=== PATIENT | female | born 1940 | race Caucasian/White ===

== ENCOUNTER 2018-02-08 14:03 | Emergency (ER) | payer MEDICARE, BC ==
[2018-02-08] MEDS ORDERED: ASPI-1471 PO (14:22)
[2018-02-08] MEDS ORDERED: METF-411 PO (14:22)
[2018-02-08] MEDS ORDERED: LEV125 PO (14:22)
[2018-02-08] MEDS ORDERED: ROSU5TAB8 PO (14:22)
--- NOTE | 2018-02-08 14:23 | ER Report ---
History and Physical Time Seen By MD: 14:22 Hx. of Stated Complaint: vaginal bleeding 20 min ago in toilet and underwear HPI/ROS CHIEF COMPLAINT: Vaginal bleeding HISTORY OF PRESENT ILLNESS: 77-year-old female patient presents to emergency room with vaginal bleeding. Patient states she was in the process of traveling to her home in [place], [place]. She states that she stopped at the top of the solid to go to the bathroom. She states when she did she noticed a significant amount of red blood. Patient states that she does not believe there was from the rectum, as there is fair amount of bleeding towards the front of the pad. Patient states that she hasn't had any abdominal pain, nausea, vomiting or diarrhea. She is scheduled for a CT scan on Wednesday of this week for her oncologist. Patient states she has not taken any medication for this. She saw the bleeding was concerned and wanted to come in and be evaluated for that. REVIEW OF SYSTEMS: Respiratory: No cough, no dyspnea. Cardiovascular: No chest pain, no palpitations. Gastrointestinal: As noted above Musculoskeletal: No back pain. Home Meds Active Scripts Ranitidine Hcl (ZANTAC) 150 Mg Tablet, 150 MG PO BID, #60 TAB Prov:DAI CHINCHILLA [facility] 02/08/18 Sucralfate (CARAFATE) 1 Gm Tablet, 1 GM PO QID, #60 TAB Take before meals and at bedtime. Crush the tablet and mix with water before taking. Prov:DAI CHINCHILLA [facility] 02/08/18 Reported Medications Rosuvastatin Calcium (CRESTOR) 5 Mg Tablet, 5 MG PO QODAY 02/08/18 Levothyroxine Sodium (LEVOTHYROXINE SODIUM) 0.125 Mg Tab, 0.125 MG PO QDAY, TAB 02/08/18 Metformin Hcl (METFORMIN HCL) 500 Mg Tablet, 1 TAB PO BID, TAB 02/08/18 Aspirin (ASPIR 81) 81 Mg Tablet.dr, 81 MG PO QDAY, TAB 02/08/18 Past Medical/Surgical History Patient has a past medical history of A. fib, colon cancer, arthritis, type 2 diabetes. Patient has a surgical history of hysterectomy, colon resection. Patient has a family medical history of cancer. Reviewed Nurses Notes: Yes Constitutional Vital Sign - Last 24 Hours 02/08/18 02/08/18 02/08/18 02/08/18 14:08 14:15 14:30 14:45 Temp 97.5 Pulse 70 67 63 Resp 16 B/P (MAP) 176/87 146/64 (91) Pulse Ox 92 91 91 88 O2 Delivery Room Air 02/08/18 02/08/18 02/08/18 15:00 15:15 16:08 Pulse 64 63 59 65 67 Resp 20 16 B/P (MAP) 147/78 (101) 142/69 (93) 151/74 (99) 155/83 (107) Pulse Ox 89 91 91 O2 Delivery Room Air Intake and Output 02/08/18 02/08/18 02/09/18 15:00 23:00 07:00 Output Total 10 ml Balance -10 ml Physical Exam General Appearance: The patient is alert, has no immediate need for airway protection and no current signs of toxicity. Respiratory: Chest is non tender, lungs are clear to auscultation. Cardiac: regular rate and rhythm Gastrointestinal: Abdomen is soft and non tender, no masses, bowel sounds normal. Musculoskeletal: Neck: Neck is supple and non tender. Extremities have full range of motion and are non tender. Skin: No rashes or lesions. DIFFERENTIAL DIAGNOSIS: After history and physical exam differential diagnosis was considered for GI bleed, bleeding from urethra, vaginal bleeding. Medical Decision Making Data Points Result Diagram: 02/08/18 1415 02/08/18 1415 Laboratory Hematology Test 02/08/18 14:15 02/08/18 15:33 02/08/18 15:44 Red Blood Count 4.89 M/uL (4.17-5.56) Mean Corpuscular Volume 91.3 fL (80.0-96.0) Mean Corpuscular Hemoglobin 31.3 pg (26.0-33.0) Mean Corpuscular Hemoglobin Concent 34.3 g/dL (32.0-36.0) Red Cell Distribution Width 13.8 % (11.5-14.5) Mean Platelet Volume 8.9 fL (7.2-11.1) Neutrophils (%) (Auto) 59.5 % (39.4-72.5) Lymphocytes (%) (Auto) 31.9 % (17.6-49.6) Monocytes (%) (Auto) 6.1 % (4.1-12.4) Eosinophils (%) (Auto) 2.0 % (0.4-6.7) Basophils (%) (Auto) 0.5 % (0.3-1.4) Nucleated RBC Relative Count (auto) 0.0 /100WBC Neutrophils # (Auto) 3.5 K/uL (2.0-7.4) Lymphocytes # (Auto) 1.9 K/uL (1.3-3.6) Monocytes # (Auto) 0.4 K/uL (0.3-1.0) Eosinophils # (Auto) 0.1 K/uL (0.0-0.5) Basophils # (Auto) 0.0 K/uL (0.0-0.1) Nucleated RBC Absolute Count (auto) 0.00 K/uL Prothrombin Time 13.1 seconds (12.0-14.4) Prothromb Time International Ratio 0.99 Activated Partial Thromboplast Time 27 seconds (23-35) Sodium Level 143 mmol/L (137-145) Potassium Level 3.5 mmol/L (3.5-5.0) Chloride Level 104 mmol/L (98-107) Carbon Dioxide Level 27 mmol/L (22-31) Blood Urea Nitrogen 18 mg/dl (7-18) Creatinine 0.80 mg/dl (0.52-1.04) Glomerular Filtration Rate Calc > 60.0 Random Glucose 135 mg/dl (75-110) Calcium Level 9.6 mg/dl (8.4-10.2) Total Bilirubin 0.4 mg/dl (0.2-1.3) Aspartate Amino Transf (AST/SGOT) 29 U/L (0-35) Alanine Aminotransferase (ALT/SGPT) 29 U/L (0-56) Alkaline Phosphatase 45 U/L (0-126) Total Protein 7.2 g/dl (6.3-8.2) Albumin 4.4 g/dl (3.5-5.0) Stool Occult Blood (IFOB) Positive (NEGATIVE) Urine Color Yellow Urine Clarity Clear Urine pH 5.0 pH (4.8-9.5) Urine Specific [place] 1.023 Urine Protein Negative mg/dL (NEGATIVE) Urine Glucose (UA) Negative mg/dL (NEGATIVE) Urine Ketones Negative mg/dL (NEGATIVE) Urine Blood Negative (NEGATIVE) Urine Nitrite Negative (NEGATIVE) Urine Bilirubin Negative (NEGATIVE) Urine Urobilinogen Negative mg/dL (0.2-1.9) Urine Leukocyte Esterase Negative (NEGATIVE) Urine RBC <1 /HPF (0-2/HPF) Urine WBC 2 /HPF (0-5/HPF) Urine Squamous Epithelial Cells Few /LPF (NONE-FEW) Urine Bacteria Negative /HPF (NONE-FEW) Urine Mucus Few /HPF (NONE-FEW) Chemistry Test 02/08/18 14:15 02/08/18 15:33 02/08/18 15:44 White Blood Count 5.9 k/uL (4.5-11.0) Red Blood Count 4.89 M/uL (4.17-5.56) Hemoglobin 15.3 g/dL (12.0-16.0) Hematocrit 44.6 % (34.0-47.0) Mean Corpuscular Volume 91.3 fL (80.0-96.0) Mean Corpuscular Hemoglobin 31.3 pg (26.0-33.0) Mean Corpuscular Hemoglobin Concent 34.3 g/dL (32.0-36.0) Red Cell Distribution Width 13.8 % (11.5-14.5) Platelet Count 206 K/uL (150-450) Mean Platelet Volume 8.9 fL (7.2-11.1) Neutrophils (%) (Auto) 59.5 % (39.4-72.5) Lymphocytes (%) (Auto) 31.9 % (17.6-49.6) Monocytes (%) (Auto) 6.1 % (4.1-12.4) Eosinophils (%) (Auto) 2.0 % (0.4-6.7) Basophils (%) (Auto) 0.5 % (0.3-1.4) Nucleated RBC Relative Count (auto) 0.0 /100WBC Neutrophils # (Auto) 3.5 K/uL (2.0-7.4) Lymphocytes # (Auto) 1.9 K/uL (1.3-3.6) Monocytes # (Auto) 0.4 K/uL (0.3-1.0) Eosinophils # (Auto) 0.1 K/uL (0.0-0.5) Basophils # (Auto) 0.0 K/uL (0.0-0.1) Nucleated RBC Absolute Count (auto) 0.00 K/uL Prothrombin Time 13.1 seconds (12.0-14.4) Prothromb Time International Ratio 0.99 Activated Partial Thromboplast Time 27 seconds (23-35) Glomerular Filtration Rate Calc > 60.0 Calcium Level 9.6 mg/dl (8.4-10.2) Total Bilirubin 0.4 mg/dl (0.2-1.3) Aspartate Amino Transf (AST/SGOT) 29 U/L (0-35) Alanine Aminotransferase (ALT/SGPT) 29 U/L (0-56) Alkaline Phosphatase 45 U/L (0-126) Total Protein 7.2 g/dl (6.3-8.2) Albumin 4.4 g/dl (3.5-5.0) Stool Occult Blood (IFOB) Positive (NEGATIVE) Urine Color Yellow Urine Clarity Clear Urine pH 5.0 pH (4.8-9.5) Urine Specific [place] 1.023 Urine Protein Negative mg/dL (NEGATIVE) Urine Glucose (UA) Negative mg/dL (NEGATIVE) Urine Ketones Negative mg/dL (NEGATIVE) Urine Blood Negative (NEGATIVE) Urine Nitrite Negative (NEGATIVE) Urine Bilirubin Negative (NEGATIVE) Urine Urobilinogen Negative mg/dL (0.2-1.9) Urine Leukocyte Esterase Negative (NEGATIVE) Urine RBC <1 /HPF (0-2/HPF) Urine WBC 2 /HPF (0-5/HPF) Urine Squamous Epithelial Cells Few /LPF (NONE-FEW) Urine Bacteria Negative /HPF (NONE-FEW) Urine Mucus Few /HPF (NONE-FEW) Coagulation Test 02/08/18 14:15 Prothrombin Time 13.1 seconds Prothromb Time International Ratio 0.99 Activated Partial Thromboplast Time 27 seconds Urinalysis Test 02/08/18 15:44 Urine Color Yellow Urine Clarity Clear Urine pH 5.0 pH (4.8-9.5) Urine Specific [place] 1.023 Urine Protein Negative mg/dL (NEGATIVE) Urine Glucose (UA) Negative mg/dL (NEGATIVE) Urine Ketones Negative mg/dL (NEGATIVE) Urine Blood Negative (NEGATIVE) Urine Nitrite Negative (NEGATIVE) Urine Bilirubin Negative (NEGATIVE) Urine Urobilinogen Negative mg/dL (0.2-1.9) Urine Leukocyte Esterase Negative (NEGATIVE) Urine RBC <1 /HPF (0-2/HPF) Urine WBC 2 /HPF (0-5/HPF) Urine Squamous Epithelial Cells Few /LPF (NONE-FEW) Urine Bacteria Negative /HPF (NONE-FEW) Urine Mucus Few /HPF (NONE-FEW) ED Course/Re-evaluation ED Course Patient was admitted exam room, history and physical were obtained. Differential diagnoses were considered. On examination lungs are clear, heart is regular, abdomen soft nontender. Pelvic exam was done which was described below. A CBC, CMP, urinalysis were obtained. The lab results were completely unremarkable, urine was negative. There was some blood noted on the pelvic exam. However there is just clotting was found in the vaginal vault. I did not see any active bleeding. A stool sample was obtained and was sent down for an occult blood. That was positive. As result of that we will go ahead and treat her with Zantac, as patient did have a reaction to a PPI in the past which caused abdominal discomfort. As well as Carafate. We'll have her follow-up with her primary care provider. With the blood in the vaginal vault and blew that is likely the source of bleeding, however I will go ahead and treat her for GI bleed as well. I did go ahead and check a CA-125 for any tumor markers. I discussed this with the patient who verbalized understanding and agreement with plan. Decision to Disposition Date: Feb 08, 2018 Decision to Disposition Time: 16:21 Depart Departure Latest Vital Signs Vital Signs Date Time Temp Pulse Resp B/P (MAP) Pulse Ox O2 Delivery O2 Flow Rate FiO2 02/08/18 16:08 59 142/69 (93) 91 Room Air 65 151/74 (99) 67 155/83 (107) 02/08/18 15:15 16 02/08/18 14:08 97.5 Impression: Primary Impression: Vaginal bleeding Condition: Condition Unchanged Disposition: HOME OR SELF-CARE New Scripts Ranitidine Hcl (ZANTAC) 150 Mg Tablet 150 MG PO BID, #60 TAB Prov: DAI CHINCHILLA 02/08/18 Sucralfate (CARAFATE) 1 Gm Tablet 1 GM PO QID, #60 TAB Take before meals and at bedtime. Crush the tablet and mix with water before taking. Prov: DAI CHINCHILLA 02/08/18 Patient Instructions: Gastrointestinal Bleeding (ED) Additional Instructions: Follow up with your primary care provider in the next 3-4 days. Get plenty of rest. Increase fluid intake. With the positive occult blood we will treat this with an H2 barbara and Carafate. Return to the ER if condition worsens. DAI CHINCHILLA Feb 08, 2018 14:23
[2018-02-08] MEDS ORDERED: NS(*) 0.9% 500 ML BAG 500 ML IV ONE (14:32)
[2018-02-08 14:43] LABS: PLATELET COUNT, AUTOMATED 206 K/uL (150-450)
[2018-02-08 14:47] LABS: INR 0.99
[2018-02-08 16:08] VITALS: BP 155/83
[2018-02-08] MEDS ORDERED: SUCR1TAB85 PO (16:22)
[2018-02-08] MEDS ORDERED: RANI-366 PO (16:22)
== END 2018-02-08 17:06 | disposition home or self-care (01) ==
LOC: ER 14:14
DX: N93.9 Abnormal uterine and vaginal bleeding, unspecified (principal)
CPT/HCPCS: 81001; 82040; 82247; 82274; 82310; 82374; 82435; 82565; 82947; 84075; 84132; 84155; 84295; 84450; 84460; 84520; 85025; 85610; 85730; 86304; 96360; 99283; A4353; J7040